=== PATIENT | female | born 1995 | race Caucasian/White ===

== ENCOUNTER 2022-04-10 10:21 | Observation (INO) | payer BC ==
[2022-04-08 10:31] LABS: BASOPHILS % 0.2 % (0.0-1.0); EOSINOPHILS # (AUTO) 0.1 (0.0-0.4); EOSINOPHILS % 2.6 % (0.0-6.0); HEMATOCRIT 36.6 % (34.2-44.1); HEMOGLOBIN 12.1 g/dL (12.0-16.0); LYMPHOCYTES # (AUTO) 1.4 (1.0-3.2); LYMPHOCYTES % 26.5 % (18.0-39.1); MEAN CORPUSCULAR HGB CONC 33.1 g/dL (31-35); MEAN CORPUSCULAR VOLUME 96.8 fL (81-99); MONOCYTES # (AUTO) 0.6 (0.2-0.8); MONOCYTES % 11.7 % (4.4-11.3); NEUTROPHILS # (AUTO) 3.2 (2.1-6.9); NEUTROPHILS % 58.6 % (38.7-80.0); PLATELET COUNT 281 x10e3/uL (140-360); RED BLOOD COUNT 3.78 x10e6/uL (3.6-5.1); RED CELL DISTRIBUTION WIDTH 12.7 % (11.7-14.4)
[~2022-04-10] VITALS: Ht 149.9 cm; Wt 61.2 kg
[2022-04-10] MEDS ORDERED: LIDOCAINE HCL 2% LOCAL INJ 5 ML SDV VIAL INJ ONE (12:40)
[2022-04-10] MEDS ORDERED: KETOROLAC TROMETHAMINE 30 MG/ML VIAL ONE (12:40)
[2022-04-10] MEDS ORDERED: PROPOFOL IV EMULSION 10 MG/ML 20 ML VIAL ONE (12:40)
[2022-04-10] MEDS ORDERED: ACETAMINOPHEN 1000 MG/100 ML IV ONE (12:40)
[2022-04-10] MEDS ORDERED: DEXAMETHASONE SOD PHOS INJ 4 MG/ML SDV ONE (12:40)
[2022-04-10] MEDS ORDERED: POVIDONE IODINE 0.05% 0.05 % ML PO ONE (12:40)
[2022-04-10] MEDS ORDERED: ONDANSETRON HCL INJ 2MG/ML 2ML 2 MG/ML VIAL ONE (12:40)
[2022-04-10] MEDS ORDERED: SEVOFLURANE INHAL SOLN 250 ML PEN BTL ONE (12:40)
[2022-04-10] MEDS ORDERED: TRANEXAMIC ACID 10 ML ONE (12:55)
[2022-04-10] MEDS ORDERED: OXYTOCIN INJ 10 UNIT/ML VIAL ONE (13:04)
[2022-04-10] MEDS ORDERED: SODIUM CHLORIDE 0.9% 500ML 500 ML ONE (13:06)
[2022-04-10] MEDS ORDERED: FENTANYL CITRATE/PF 100MCG/2 ML INJ ONE (13:10)
[2022-04-10] MEDS ORDERED: MIDAZOLAM HCL 2 MG/2 ML VIAL ONE (13:10)
[2022-04-10] MEDS ORDERED: METHYLERGONOVINE MALEATE 0.2 MG/ML AMP ONE (13:12)
[2022-04-10 14:34] VITALS: BP 103/70
[2022-04-10] MEDS ORDERED: ONDANSETRON HCL INJ 2MG/ML 2ML 2 MG/ML VIAL IV PRN (15:30)
[2022-04-10] MEDS ORDERED: KETOROLAC TROMETHAMINE 30 MG/ML VIAL IV PRN (15:30)
[2022-04-10 15:34] VITALS: BP 88/58
[2022-04-10] MEDS ORDERED: SODIUM CHLORIDE 0.9% 1000ML 1,000 ML ONE (16:25)
[2022-04-10] MEDS ORDERED: SODIUM CHLORIDE 0.9% 500ML 500 ML IV ONE (16:30)
[2022-04-10 16:34] VITALS: BP 102/76
[2022-04-10 17:00] VITALS: BP 102/76
[2022-04-10 17:05] VITALS: BP 102/76
[2022-04-10 18:12] VITALS: BP 104/66
== END 2022-04-10 19:02 | disposition home or self-care (01) ==
LOC: OR 10:21 → PACU V 13:36 → MED/SURG 14:34
PROVIDERS: ADMIT Obstetrics & Gynecology; ATTEND Obstetrics & Gynecology
DX: O02.1 Missed abortion (principal); Z20.822 Contact with and (suspected) exposure to COVID-19; Z01.818 Encounter for other preprocedural examination
CPT/HCPCS: 0223U; 36415; 59820; 84702; 85025; 88305; G0378; J0131; J1100; J1885; J2001; J2210; J2250; J2405; J2590; J2704; J3010; J7030; J7040; 88304